=== PATIENT | female | born 1950 | race Caucasian/White ===

== ENCOUNTER 2017-12-08 09:33 | Outpatient (CLI) | payer MEDICARE, OTHER ==
--- NOTE | 2017-12-08 12:34 | MRI ---
MRI RIGHT KNEE WITHOUT CONTRAST: INDICATIONS: Right knee pain after slipping off porch two weeks ago. COMPARISON: No comparisons are available. TECHNIQUE: Routine noncontrast MR images were obtained of the right knee. FINDINGS: There are contusions involving the posterior aspects of the tibial plateau, as well as the lateral fe moral condyle, which can be seen with a pivot shift contusion pattern. There is a partial thickness grade 2 sprain involving the distal anterior cruciate ligament attachment on image 12 of series 5 and image 15 of series 3. The medial collateral ligament, posterior cruciate ligament, and lateral judy ateral ligament complex appear intact. The extensor mechanism is intact. There is a horizontally or iented tear involving the posterior body, junction, and posterior horn of the medial meniscus. There is suspicion for a small radial oblique tear involving the posterior root of the medial meniscus. T here is a full-thickness area of delamination involving the medial femoral condyle, measuring 8 x 9 m m, in greatest medial lateral AP dimensions, respectively, on image 7 of series 18. IMPRESSION: 1. Grade 2 sprain involving the distal anterior cruciate ligament, near its distal attachment. 2. Medial meniscal tear. 3. Pivot shift contusion pattern of the lateral femoral condyle, posterior tibia plateau. POS: [facility]
== END 2017-12-08 09:34 | disposition home or self-care (01) ==
LOC: TBSIIMAG 09:33
PROVIDERS: ATTEND Orthopaedic Surgery
DX: M23.91 Unspecified internal derangement of right knee (principal); S83.241A Other tear of medial meniscus, current injury, right knee, initial encounter

== ENCOUNTER 2017-12-16 13:23 | Outpatient (CLI) | payer MEDICARE ==
[2017-12-16 14:45] LABS: #Eosinphils 0.1 thou/uL (0.0-0.7); #Lymphocytes 1.4 thou/uL (1.20-3.40); #Monocytes 0.5 thou/uL (0.11-0.59); #Neutrophils 6.2 thou/uL (1.40-6.50); %Basophils 0.5 % (0.0-1.0); %Eosinophils 0.9 % (0.0-10.0); %Monocytes 6.4 % (0.0-10.0); %Neutrophils 75.2 % (42.0-75.0); Hemoglobin 14.4 g/dL (12.0-16.0); Mean Corpuscular HGB CONC 35.2 g/dL (32.0-36.0); Mean Corpuscular Hemoglobin 32.9 pg (27.0-31.0); Mean Corpuscular Volume 93.5 fL (78.0-98.0); Mean Platelet Volume 6.2 fL (7.4-10.4); Platelet Count 296 thou/uL (130-400); RBC Distribution Width 11.6 % (11.5-14.5); Red Blood Cell (RBC) Count 4.39 mill/uL (4.20-5.40); White Blood Cell (WBC) Count 8.3 thou/uL (4.8-10.8)
[2017-12-16 15:17] LABS: Anion Gap 15 mmol/L (10-20); BUN (Urea Nitrogen) 10 mg/dL (9.8-20.1); Calc. Creatinine Clearance 0 mL/min (70-130); Calcium 9.4 mg/dL (7.8-10.44); Carbon Dioxide 24 mmol/L (23-31); Chloride 101 mmol/L (98-107); Estimated GFR-MDRD 90; Glucose 105 mg/dL (80-115); Potassium 4.3 mmol/L (3.5-5.1); Sodium 136 mmol/L (136-145)
== END 2017-12-16 13:24 | disposition home or self-care (01) ==
LOC: LABBT 13:23
PROVIDERS: ATTEND Orthopaedic Surgery
DX: Z01.818 Encounter for other preprocedural examination (principal); M23.91 Unspecified internal derangement of right knee
CPT/HCPCS: 80048; 85025; 93005; 93010

== ENCOUNTER 2017-12-17 08:35 | Day surgery (SDC) | payer MEDICARE ==
--- NOTE | 2017-12-16 09:52 | HP ---
DATE OF ADMISSION: 12/17/2017 HISTORY OF PRESENT ILLNESS: The patient is a 67-year-old female, who injured her right knee approxim ately 3 weeks ago when she slipped and fell off a porch and carried a knee buckle and she felt a pop. She was seen in the emergency room and placed in a knee immobilizer and referred to my office. She was found to have a bloody effusion. MRI scan revealed the meniscal and ligament injury, and she swift s been at this time for arthroscopic evaluation. PAST MEDICAL HISTORY: Please see the old chart. The patient has had previous left total knee replac ement. She has had a thyroid cancer removed and is in remission. She has had a tubal ligation. She also has had a history of hypertension. CURRENT MEDICATIONS: Include lisinopril, levothyroxine, hydrocodone. ALLERGIES: She is allergic to CODEINE. FAMILY HISTORY/SOCIAL HISTORY/REVIEW OF SYSTEMS: Otherwise unremarkable. PHYSICAL EXAMINATION: GENERAL: Reveals a healthy female. HEENT: Unremarkable. NECK: Supple. CHEST: Clear. HEART: Regular rate and rhythm. ABDOMEN: Soft, nontender. PELVIC/RECTAL/BREAST: Exams are deferred. EXTREMITIES: Pertinent findings of the right knee. There is 1+ effusion. There is normal alignment . There is tenderness over the medial joint line. Range of motion is 5-40 degrees and is limited by pain. She has a trace Mckenzie's and a trace valgus laxity at 30 degrees of flexion. Neurovascular exam is intact. Pulses are 1+. There is a right antalgic gait. LABORATORY AND X-RAY FINDINGS: X-rays of the right knee reveal mild degenerative changes. MRI scan of the right knee reveals a grade 2 sprain of the anterior cruciate ligament, but there appears to be some fibers still remaining. There is also bone contusions and a tear of the medial meniscus and mi ld degenerative changes. IMPRESSION: Internal derangement of right knee with medial meniscal tear and early degenerative join t disease and partial anterior cruciate ligament tear. PLAN: Arthroscopy, right knee, with partial medial meniscectomy and/or debridement and shaving. We will plan on treating the ACL portion of her injury conservatively at this stage of her life. The na ture of the surgery, length of recovery, and potential complications such as infection, loss of motio n, incomplete relief, continued instability, thromboembolic phenomenon, neurovascular injury, post-tr aumatic DJD, recurrent tear, and need for additional treatment or repeat surgery have been discussed in detail.
[2017-12-16 13:52] VITALS: BMI 25.8
[2017-12-17] MEDS ORDERED: CEFAZOLIN/Water 2 GM/20 ML SYRINGE ONE (09:16)
[2017-12-17] MEDS ORDERED: Bupivacaine HCl 0.25%/Epi 0.0005/PF 10 ML VIAL FS ONE (10:04)
[2017-12-17] MEDS ORDERED: Fentanyl 100 MCG/2 ML VIAL ONE (10:05)
--- NOTE | 2017-12-17 13:31 | OP ---
DATE OF PROCEDURE: 12/17/2017 SURGEON: Navneet Villanueva M.D. ANESTHESIA: General. PREOPERATIVE DIAGNOSES: Medial meniscal tear, partial ACL tear and degenerative joint disease, right knee. POSTOPERATIVE DIAGNOSES: Medial meniscal tear, partial ACL tear and degenerative joint disease, righ t knee. PROCEDURE: Arthroscopy of right knee with partial medial meniscectomy. OPERATIVE FINDINGS: Examination under anesthesia revealed a positive Mckenzie and a minimally positiv e pivot shift. There was moderate bloody effusion. At arthroscopy there was grade 2 chondromalacia of the patella, but no definite areas needing shaving. Examination of medial compartment revealed ap proximately a 1 x 1 cm chondral defect in the weightbearing surface of the medial femoral condyle. T his appeared to be more degenerative than traumatic in nature, although I could not totally tell for sure. It was not down to subchondral bone. There was a very large tear of the posterior horn of med ial meniscus involving most of the posterior horn almost out to its peripheral attachment. There was hemorrhage in the tibial insertion of the ACL and the ligaments were somewhat lax to probing, but th e bulk of the ligament appeared to be intact. Lateral meniscus was intact. NARRATIVE REPORT: After satisfactory anesthesia was induced in supine position, the patient was plac ed in a leg mcdermott and then prepped and draped in routine manner. Right leg was elevated and exsangu inated with an Esmarch bandage, and the tourniquet inflated to 250 mmHg. [place] arthroscope was int roduced into the anterolateral portal, probe through an anteromedial portal, and inflow and outflow a ccomplished through the scope using the Tom arthroscopy pump. Arthroscopy was carried out and th e above findings were noted. All findings were documented with the video printer and hard copies wer e made. Posterior horn of the medial meniscus was debrided with use of basket forceps and motorized shaver. Intermittently, instruments and camera were interchanged in the anteromedial and anterolater al portals for best visualization. The tear was saucerized and this necessitated removing most of th e entire posterior horn with it. There was still slight posterior rim of 1-2 mm intact, which was in tact to probing. There was a lesion of the medial femoral condyle that was debrided with a motorized shaver of all loose fronds of articular surface. The knee was then copiously irrigated through the scope and all instruments were then withdrawn. Twenty mL 0.5% Marcaine with epinephrine was instille d into the knee joint and an additional 10 mL instilled about the portal sites. The portal sites wer e closed with interrupted 3-0 nylon. A sterile bulky compressive dressing was applied and the tourni quet deflated after 32 minutes. The foot promptly pinked up and the patient was awakened and taken t o recovery room in stable condition. There were no apparent intraoperative complications. The estim ated blood loss was negligible. The patient will be discharged home in satisfactory condition. She was instructed in ice, elevation, use of crutches or walker, and home exercise program with Physical Therapy Department. She was give n written wound care instructions and a prescription for Campbell 7.5 for pain, 60 tablets. She will be rechecked in my office in approximately 2 weeks or sooner if there are any problems prior to that ti me.
== END 2017-12-17 14:00 | disposition home or self-care (01) ==
LOC: SDC 08:35
PROVIDERS: ATTEND Orthopaedic Surgery
PROC: 0SBC4ZZ Excision of Right Knee Joint, Percutaneous Endoscopic Approach (ICD-10-PCS; principal; 2017-12-17)
DX: S83.241A Other tear of medial meniscus, current injury, right knee, initial encounter (principal); S83.511A Sprain of anterior cruciate ligament of right knee, initial encounter; M17.11 Unilateral primary osteoarthritis, right knee; I10 Essential (primary) hypertension; W01.0XXA Fall on same level from slipping, tripping and stumbling without subsequent striking against object, initial encounter; Z88.5 Allergy status to narcotic agent; Z79.899 Other long term (current) drug therapy
CPT/HCPCS: 29881; 97139; G8978; G8979; G8980; J0131; J3010